=== PATIENT | female | born 1955 | race African-American/Black ===

== ENCOUNTER 2019-01-11 18:00 | Emergency (ER) | payer OTHER, MEDICAID ==
[~2019-01-11] VITALS: Ht 157.5 cm; Wt 91.0 kg
[2019-01-12] MEDS ORDERED: IPRATROPIUM/ALBUTEROL 0.5-3(2.5)MG/3ML NEB HHN ONE (03:15)
[2019-01-12 05:04] VITALS: BP 154/74
== END 2019-01-12 05:10 | disposition home or self-care (01) ==
LOC: ER 18:00
DX: J40 Bronchitis, not specified as acute or chronic (principal); I10 Essential (primary) hypertension; F17.210 Nicotine dependence, cigarettes, uncomplicated; Z71.6 Tobacco abuse counseling
CPT/HCPCS: 71045; 87804; 94640; 99284; 99406; J7620